=== PATIENT | male | born 1960 | race Hispanic/Latino ===

== ENCOUNTER 2018-03-18 23:08 | Emergency (ER) | payer MEDICARE, OTHER ==
--- NOTE | 2018-03-19 00:10 | ED PDOC ---
- ECG O2 Sat by Pulse Oximetry: 96 Medical Decision Making Medical Decision Making: Time: 00:00 --Patient care endorsed from Dr. Barton to Dr. Schmidt pending bed availability at [facility]. Patient has already been accepted just waiting for open bed. ----- Scribe Attestation: Documented by Bin Willson, acting as a scribe for Floyd Schmidt MD Provider Scribe Attestation: All medical record entries made by the Scribe were at my direction and personally dictated by me. I have reviewed the chart and agree that the record accurately reflects my personal performance of the history, physical exam, medical decision making, and the department course for this patient. I have also personally directed, reviewed, and agree with the discharge instructions and disposition. Disposition - Disposition
[2018-03-19 00:12] LABS: BASO # 0.1 K/uL (0.0-0.2); EOS # 0.4 K/uL (0.0-0.7); EOS % 4.5 % (0.0-4.0); HEMOGLOBIN 15.3 g/dL (12.0-18.0); LYMPH # 1.8 K/uL (1.0-4.3); LYMPH % 22.6 % (20.0-40.0); MEAN CELL VOLUME 87.3 fl (80.0-94.0); MEAN CORPUSCULAR HEMOGLOBIN 29.3 pg (27.0-31.0); MEAN CORPUSCULAR HGB CONC 33.6 g/dL (33.0-37.0); MEAN PLATELET VOLUME 6.7 fl (7.2-11.7); MONO # 0.8 K/uL (0.0-0.8); NEUT # 4.9 K/uL (1.8-7.0); NEUT % 61.9 % (50.0-75.0); NRBC % 0.1 % (0.0-0.0); RBC 5.21 Mil/uL (4.40-5.90); RED CELL DISTRIBUTION WIDTH 13.7 % (11.5-14.5)
[2018-03-19 00:19] LABS: BLOOD UREA NITROGEN 13 mg/dl (9-20); CALCIUM 9.8 mg/dL (8.4-10.2); GFR AFRICAN-AMERICAN > 60; GFR NON-AFRICAN AMERICAN > 60
[2018-03-19 00:24] LABS: ACETAMINOPHEN < 10.0 ug/ml (10.0-30.0); SALICYLATE < 1.0 mg/dl
--- NOTE | 2018-03-19 00:37 | ED PDOC ---
HPI: Psych/Substance Abuse Time Seen by Provider: 03/18/18 23:10 Chief Complaint (Nursing): Psychiatric Evaluation Chief Complaint (Provider): Psychiatric Evaluation History Per: Patient Associated Symptoms: Anxiety, Agitation Additional Complaint(s): Patient is a 57 y/o male with history of OCD, anxiety and avoidance behavior who was brought to the ED because he had an agitated episode. Patient reports he was agitated on the bus which he was taking to go home where he lives with his mom. He denies SI or HI pt states he's just anxious. Past Medical History Reviewed: Historical Data, Nursing Documentation, Vital Signs Vital Signs: Last Vital Signs Temp 98.6 F 03/18/18 23:10 Pulse 79 03/18/18 23:10 Resp 18 03/18/18 23:10 BP 129/76 03/18/18 23:10 Pulse Ox 96 03/18/18 23:10 - Medical History PMH: Anxiety Denies: Diabetes, Hepatitis, HIV, HTN, Seizures, Sexually Transmitted Disease - Surgical History Surgical History: No Surg Hx - Family History Family History: States: Unknown Family Hx - Living Arrangements Living Arrangements: With Family (mom) - Social History Current smoker - smoking cessation education provided: No Alcohol: None Drugs: Denies - Home Medications Home Medications: Ambulatory Orders Medication Instructions Recorded Perphenazine [Trilafon] 8 mg PO HS 03/19/18 - Allergies Allergies/Adverse Reactions: Allergies Allergy/AdvReac Type Severity Reaction Status Date / Time No Known Allergies Allergy Verified 10/11/16 22:52 Review of Systems ROS Statement: Except As Marked, All Systems Reviewed And Found Negative Psych: Positive for: Anxiety Physical Exam - Reviewed Nursing Documentation Reviewed: Yes Vital Signs Reviewed: Yes - Physical Exam Appears: Positive for: Non-toxic, No Acute Distress Skin: Positive for: Normal Color, Warm, Dry Cardiovascular/Chest: Positive for: Regular Rate, Rhythm. Negative for: Bradycardia Respiratory: Positive for: Normal Breath Sounds. Negative for: Respiratory Distress Gastrointestinal/Abdominal: Positive for: Normal Exam, Soft. Negative for: Tenderness Extremity: Positive for: Normal ROM. Negative for: Pedal Edema, Deformity Neurologic/Psych: Positive for: Alert, Oriented, Other (Very poor eye contact; very figidity; agitated; repetitive sentences). Negative for: Motor/Sensory Deficits - Laboratory Results Result Diagrams: 03/18/18 00:02 03/18/18 00:02 - ECG O2 Sat by Pulse Oximetry: 96 (RA) Pulse Ox Interpretation: Normal Medical Decision Making Medical Decision Making: Time: 23:33 Impression: Anxiety, ocd Initial Plan: --Acetominophen --Alcohol serum --BMP --Drug Screen --Salicylate --Crisis Eval --CBC w/ differential --Urinalysis Time: 04:37 Patient is medically clear at this time. EKg reviewed. labs as well. Patient was seen by crisis. Patient refuses admission he will be screened for JC. Time: 06:17 Patient is very agitated at this time; he is refusing EKG. Patient will be given Ativan to relieve agitation. now pt is agreeable, so will not give ativan. pts urine appears bloody, but no obvious sign of infection. Time: 07:00 Patient care endorsed to Dr. Bentley pending [facility] screening ----- Scribe Attestation: Documented by Bin Willson, acting as a scribe for Floyd Schmidt MD Provider Scribe Attestation: All medical record entries made by the Scribe were at my direction and personally dictated by me. I have reviewed the chart and agree that the record accurately reflects my personal performance of the history, physical exam, medical decision making, and the department course for this patient. I have also personally directed, reviewed, and agree with the discharge instructions and disposition. Disposition - Clinical Impression Clinical Impression: Anxiety - Patient ED Disposition Is Patient to be Admitted: Transfer of Care Counseled Patient/Family Regarding: Diagnosis - Disposition Referrals: [facility] [Outside] - 03/20/18 Disposition Time: 07:00 Condition: STABLE Additional Instructions: Return if not better in 3 days. Instructions: Anxiety, Adult (DC) Patient Signed Over To: Hair Bentley Handoff Comments: [facility] screening
[2018-03-19 06:20] LABS: BARBITURATES, UR NEGATIVE (NEGATIVE); BENZODIAZEPINES, UR NEGATIVE (NEGATIVE); OPIATES, UR NEGATIVE (NEGATIVE); PHENCYCLIDINE, UR NEGATIVE (NEGATIVE)
[2018-03-19 06:28] LABS: URINE BILIRUBIN NEGATIVE (NEGATIVE); URINE BLOOD LARGE (NEGATIVE); URINE CLARITY CLOUDY (Clear); URINE COLOR YELLOW (YELLOW); URINE GLUCOSE (UA) NEG (Normal); URINE LEUKOCYTE ESTERASE NEG Leu/uL (Negative); URINE PROTEIN 100 mg/dL (NEGATIVE); URINE UROBILINOGEN 0.2-1.0 mg/dL (0.2-1.0)
--- NOTE | 2018-03-19 07:37 | ED PDOC ---
- Laboratory Results Result Diagrams: 03/18/18 00:02 03/18/18 00:02 - ECG O2 Sat by Pulse Oximetry: 96 (RA) Pulse Ox Interpretation: Normal - Progress ED Course And Treament: 1043: Stable. Dr. Garland saw pt. in the ER. AAOx3. Does not meet criteria for admit or screening. Wants pt. dc. Fu with pcp. Medical Decision Making Medical Decision Making: patient signed out to provider at 0700 from pending [facility] screening. -- Documented by Julianne Coronel acting as a scribe for Hair Bentley MD. All medical record entries made by the Scribe were at my direction and personally dictated by me. I have reviewed the chart and agree that the record accurately reflects my personal performance of the history, physical exam, medical decision making, and the department course for this patient. I have also personally directed, reviewed, and agree with the discharge instructions and disposition. Disposition - Clinical Impression Clinical Impression: Anxiety - POA Present On Arrival: None - Disposition Referrals: [facility] [Outside] - 03/20/18 Disposition: Routine/Home Disposition Time: 10:46 Condition: STABLE Additional Instructions: Return if not better in 3 days. Instructions: Anxiety, Adult (DC)
--- NOTE | 2018-03-19 07:54 | CARD ---
APPROVED REPORT Date of service: 03/19/2018 EKG Measurement Heart [id number] <Conclusion> Normal sinus rhythm Incomplete right bundle branch block abnormal ECG
[2018-03-19 11:13] VITALS: BP 127/84; PULSE 88; RESP 18; TEMP 98.1
--- NOTE | 2018-03-19 12:14 | CP.PCM.CON ---
History of Present Illness - History of Present Illness History of Present Illness: Face to Face evaluation pt is a 57 ys old male brought to ER by police after exhibiting erratic behavior on the bus pt has previous diagnosis of Autistic spectrum disorder, tourette, and bipolar , has been placed on trilafon and reported has not been compliant for past few days as he was unable to reach his psychiatrist at [facility] on evaluation, pt has repititve speech anxious mood and affect, pt denied any symptoms of depression, denied psychotic symptoms, non elicited, denied suicidal or homicidal ideation, shows insight into his illness , understands the need to be compliant with medication deneid any current suicidal or homicidal ideation Past Patient History - Past Social History Alcohol: None Drugs: Denies - CARDIAC Hx Hypertension: No - PULMONARY Hx Tuberculosis: No - NEUROLOGICAL Hx Seizures: No - RENAL Hx Chronic Kidney Disease: Yes Hx Kidney Stones: Yes - HEMATOLOGICAL/ONCOLOGICAL Hx Human Immunodeficiency Virus (HIV): No - GENITOURINARY/GYNECOLOGICAL Hx Sexually Transmitted Disorders: No - PSYCHIATRIC Hx Anxiety: Yes - SURGICAL HISTORY Hx Surgeries: Yes Other/Comment: Hx Urethral stent placement - ANESTHESIA Hx Anesthesia: No Hx Anesthesia Reactions: No Meds Allergies/Adverse Reactions: Allergies Allergy/AdvReac Type Severity Reaction Status Date / Time No Known Allergies Allergy Verified 10/11/16 22:52 Physical Exam - Psychiatric Exam Additional comments: pt seen in bed , cooperative, anxious mood and affect, speech loud and irritable , thought process goal directed, denied any current perceptual disturbances, non elicited ,denied suicidal or homicidal ideation alert awake oriented to person and place Results - Vital Signs Recent Vital Signs: Last Vital Signs Temp 98.1 F 03/19/18 11:10 Pulse 88 03/19/18 11:10 Resp 18 03/19/18 11:10 BP 127/84 03/19/18 11:10 Pulse Ox 99 03/19/18 11:10 - Labs Result Diagrams: 03/18/18 00:02 03/18/18 00:02 Labs: Laboratory Results - last 24 hr 03/18/18 03/18/18 03/18/18 00:02 00:02 00:02 WBC 8.0 RBC 5.21 Hgb 15.3 Hct 45.5 MCV 87.3 D MCH 29.3 MCHC 33.6 RDW 13.7 Plt Count 381 MPV 6.7 L Neut % (Auto) 61.9 Lymph % (Auto) 22.6 Forrest % (Auto) 10.0 Eos % (Auto) 4.5 H Baso % (Auto) 1.0 Neut # (Auto) 4.9 Lymph # (Auto) 1.8 Forrest # (Auto) 0.8 Eos # (Auto) 0.4 Baso # (Auto) 0.1 Sodium 144 Potassium 4.5 Chloride 104 Carbon Dioxide 30 Anion Gap 15 BUN 13 Creatinine 1.0 Est GFR ( Amer) > 60 Est GFR (Non-Af Amer) > 60 Random Glucose 99 Calcium 9.8 Urine Color Urine Clarity Urine pH Ur Specific Wolf Urine Protein Urine Glucose (UA) Urine Ketones Urine Blood Urine Nitrate Urine Bilirubin Urine Urobilinogen Ur Leukocyte Esterase Urine RBC (Auto) Urine Microscopic WBC Salicylates < 1.0 Urine Opiates Screen Urine Methadone Screen Acetaminophen < 10.0 L Ur Barbiturates Screen Ur Phencyclidine Scrn Ur Amphetamines Screen U Benzodiazepines Scrn U Oth Cocaine Metabols U Cannabinoids Screen Alcohol, Quantitative < 10 03/19/18 03/19/18 05:56 05:56 WBC RBC Hgb Hct MCV MCH MCHC RDW Plt Count MPV Neut % (Auto) Lymph % (Auto) Forrest % (Auto) Eos % (Auto) Baso % (Auto) Neut # (Auto) Lymph # (Auto) Forrest # (Auto) Eos # (Auto) Baso # (Auto) Sodium Potassium Chloride Carbon Dioxide Anion Gap BUN Creatinine Est GFR ( Amer) Est GFR (Non-Af Amer) Random Glucose Calcium Urine Color Yellow Urine Clarity Cloudy Urine pH 6.0 Ur Specific Wolf 1.013 Urine Protein 100 Urine Glucose (UA) Neg Urine Ketones Negative Urine Blood Large Urine Nitrate Negative Urine Bilirubin Negative Urine Urobilinogen 0.2-1.0 Ur Leukocyte Esterase Neg Urine RBC (Auto) 2361 H Urine Microscopic WBC 22 H Salicylates Urine Opiates Screen Negative Urine Methadone Screen Negative Acetaminophen Ur Barbiturates Screen Negative Ur Phencyclidine Scrn Negative Ur Amphetamines Screen Negative U Benzodiazepines Scrn Negative U Oth Cocaine Metabols Negative U Cannabinoids Screen Negative Alcohol, Quantitative Assessment & Plan - Assessment and Plan (Free Text) Assessment: autistic spectrum disorder hx of bipolar disorder Plan: pt at current mental status not danger to self or others collateral information obtained from mother, who stated pt has been stable, compliant with medications and follow up appointment pt cleared for discharge psychiatrically upon medical clearance
[2018-03-19 22:17] VITALS: O2SAT 96
== END 2018-03-19 11:10 | disposition home or self-care (01) ==
LOC: H.ER 23:08
DX: F84.0 Autistic disorder (principal); F31.9 Bipolar disorder, unspecified; F41.9 Anxiety disorder, unspecified; F42.9 Obsessive-compulsive disorder, unspecified
CPT/HCPCS: 80048; 81003; 85025; 87086; 93005; 99283; G0480